=== PATIENT | male | born 1980 | race Caucasian/White ===

== ENCOUNTER 2024-10-11 16:45 | Emergency (ER) | payer MEDICAID, SELFPAY ==
--- NOTE | ~2024-10-11 | CT_ITS ---
CLINICAL HISTORY: RLQ pain and hematuria CT abdomen and pelvis without contrast Comparison: None provided Findings: Mild bibasilar atelectasis and scarring with question emphysematous changes of the partially imaged lung bases. No obstructing stone in the right kidney or right ureter. No obstructing stone in the left kidney or imaged left ureter. Left kidney is likely under rotated versus transplanted with relative lower positioning compared to the right. Small mesenteric lymph nodes are nonspecific and likely reactive. Adrenal glands are partly obscured and otherwise unremarkable. The spleen is nonenlarged. The gallbladder is surgically absent. Pancreas unremarkable for noncontrast study. Mild fat deposition suggested in the liver. Fluid and multiple small-bowel loops as can be seen with enteritis. No small bowel obstruction. Fluid in the large intestine can be seen with diarrhea type illnesses and mild colitis. Wall thickening of the descending colon and sigmoid colon suggested in this noncontrast study. Differential considerations include colitis. Multiple phleboliths are noted in the pelvis. Prostate gland measures 4.5 cm transverse. Mild-moderate wall thickening of the urinary bladder is nonspecific. Small fat containing left inguinal hernia. Multiple bone islands noted, including proximal left femur and right acetabulum. Degenerative changes include ligament calcifications and facet arthropathy of the imaged spine. IMPRESSION: 1. No obstructing stone of either kidney or either ureter. 2. Wall thickening of the urinary bladder is nonspecific. 3. Wall thickening of the large intestine is nonspecific in the may reflect colitis, including imaged sigmoid colon in this noncontrast study. This document has been electronically signed by: Jabier Chu MD on 10/11/2024 20:08:21
--- NOTE | 2024-10-11 17:07 | ED_ITS ---
HPI - General Adult General Chief complaint: Abdominal Pain Stated complaint: abd pain, blood in urine Time Seen by Provider: 10/11/24 18:27 Source: patient Mode of arrival: ambulatory Limitations: no limitations History of Present Illness ED Provider: DR. 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 , no nausea, no vomiting, no fever, s/p cholecystectomy, normal bowel movement, passing flatus, otherwise no dysuria, no frequency urination, no fever, no chills. Related Data Allergies Allergy/AdvReac Type Severity Reaction Status Date / Time seafood Allergy Hives Verified 10/11/24 17:10 Review of Systems 2 Review of Systems: All other systems are reviewed and are negative Constitutional: Reports as per HPI and Reports no additional constitutional complaints Eyes: Reports as per HPI and Reports no additional eye complaints Reports system reviewed and no additional complaints, except as documented Cardiovascular: Reports as per HPI and Reports no additional cardiovascular complaints Respiratory: Reports as per HPI and Reports no additional respiratory complaints Gastrointestinal: Reports as per HPI and Reports no additional gastrointestinal complaints Genitourinary: Reports no additional female genitourinary complaints Musculoskeletal: Reports no additional musculoskeletal complaints Skin/Breast: Reports system reviewed and no additional complaints, except as docu Psychiatric: Reports no additional psychiatric complaints Endocrine: Reports no additional endocrine complaints Hematologic/Lymphatic: Reports no additional hematologic/lymphatic complaints Allergic/Immunologic: Reports no additional allergic/immunologic complaints Reports system reviewed and no additional complaints, except as documented and Reports Abnormal speech present Physical Exam ED Vital Signs: Vital Signs - 24 hr 10/11/24 17:08 10/11/24 18:00 10/11/24 20:00 Temperature 98.4 F 98.1 F 98.1 F Pulse Rate 68 16 L 80 Respiratory Rate 18 16 16 Blood Pressure 124/75 126/77 111/76 Pulse Oximetry 98 100 96 Oxygen Delivery Method Room Air Room Air Room Air BMI result Body Mass Index 21.9 Vital signs have been reviewed and appear to be correct. Blood pressure elevated. Heart rate normal. Respiratory rate normal. Temperature normal. Oxygen saturation normal. Appearance: Alert. Oriented X3. No acute distress. Head: Normal external exam. Normocephalic. Atraumatic. No [place] signs noted. No raccoon eyes noted Eyes: PERRLA. EOMI. Conjunctiva and sclera normal. Eyelids normal. ENT: TM's Normal. Pharynx normal. Uvula midline. Moist mucous membranes. No trismus noted. No drooling noted. No muffled voice noted. Neck: Normal inspection. Neck supple. FROM. No adenopathy. Thyroid Normal. No meningeal signs. No neck mass noted. CVS: Normal heart rate and rhythm. Heart sound normal. No murmurs noted. Pulses normal throughout. Respiratory: No respiratory distress. Painless inspiration. Breath sounds normal. No wheezes/rales/rhonchi noted. Chest nontender. No accessory muscle usage noted or decreased air movement noted. Abdomen: Soft and nontender. Bowel sounds normal in all 4 quadrants. No distention noted. No organomegaly noted. No visible injury noted. Back: No CVA tenderness. Full range of motion noted. Skin: Skin warm and dry. Normal skin color. Normal skin turgor. No rashes/lesions/lacerations noted. Extremities: No lower extremity edema. Extremities exhibit normal range of motion. Extremities nontender. Neuro: Oriented X 3. Cranial nerve exam: II-XII are grossly intact No motor deficit. No sensory deficit. Reflexes normal. Course Course Course Narrative: This is a Rapid Medical Examination (RME) performed by Dionicio Cummings PA-C in triage. Full HPI, ROS, assessment and treatment plan per primary provider in the Main ED. Hx: 43 yo M here for eval of epigastric abd pain and dark colored urine x days. smokes tobacco. No N/V, dyruria, flank pain. Plan: labs, UA Reevaluation(s) Reevaluation #1: Slight leukocytosis of unclear etiology could be stress, otherwise unremarkable labs, UA is positive for moderate blood but no urine RBCs detected, CT abdomen pelvis is grossly negative for malignancy or kidney stones. Patient was instructed to find a PCP and start following with a to get his screenings annual exams patient was referred to [facility]. Time: 21:29 Medical Decision Making Differential Diagnosis Differential Diagnoses: The differential diagnosis associated with the presentation includes (Gross hematuria, UTI, kidney stone, colitis, diverticulitis, electrolyte derangement, severe anemia.) Admission/Observation Consideration of admission/observation: Escalation of care including admission/observation considered Lab Data MDM Lab Attestation statement: I reviewed the patient's lab results. 10/11/24 17:21 10/11/24 17:21 Labs: Lab Results 10/11/24 Range/Units 17:21 WBC 12.4 H (4.8-10.8) X10*3/uL RBC 5.21 (4.60-5.80) X10*6/uL Hgb 15.1 (14.0-18.0) g/dl Hct 44.6 (42.0-52.0) % MCV 85.6 (80.0-98.0) fL MCH 29.0 (27.0-33.0) pg MCHC 33.9 (31.0-36.0) g/dl RDW 12.7 (11.0-16.0) % Plt Count 272 (160-400) X10*3/uL MPV 9.7 (9.4-12.4) fL Immature Gran % (Auto) 0.2 (0.0-0.4) % Neut % (Auto) 65.6 (45-73) % Lymph % (Auto) 26.8 (20-40) % [place] % (Auto) 6.7 (2-11) % Eos % (Auto) 0.4 (0-4) % Baso % (Auto) 0.3 (0-2) % Lymph # (Auto) 3.3 (1.2-4.9) X10*3/uL [place] # (Auto) 0.8 (0.1-1.2) X10*3/uL Eos # (Auto) 0.1 (0.0-0.4) X10*3/uL Baso # (Auto) 0.0 (0.0-0.2) X10*3/uL Abs Immat Gran (auto) 0.03 (0.00-0.03) X10*3/uL Absolute Neuts (auto) 8.1 (2.0-8.3) x10*3/uL Absolute Nucleated RBC 0.000 (0.0-0.012) X10*3/uL Nucleated RBC % (auto) 0.0 (0.0-0.2) /100WBC Sodium 143 (135-145) mmol/L Potassium 3.6 (3.3-5.1) mmol/L Chloride 107 (96-108) mmol/L Carbon Dioxide 25 (22-29) mmol/L Anion Gap 15 (12-20) BUN 7 L (9-16) mg/dL Creatinine 1.09 (0.5-1.4) mg/dL Estim Creat Clear Calc 90.3 Estimated GFR > 60 Random Glucose 90 (60-115) mg/dL Calcium 9.5 (8.4-10.2) mg/dL Magnesium 1.9 (1.6-2.6) mg/dL Total Bilirubin 1.0 (0.0-1.0) mg/dL AST 19 (5-37) U/L ALT 14 (0-40) U/L Alkaline Phosphatase 101 (39-117) U/L Total Creatine Kinase 111 (38-174) U/L Total Protein 7.4 (6.5-8.0) g/dL Albumin 4.9 (3.5-5.0) g/dL Lipase 16 (8-78) U/L Urine Color Dark Yellow Urine Appearance Clear Urine pH 5.5 (5.0-9.0) Ur Specific [place] 1.025 (1.005-1.025) Urine Protein Trace (Neg-Trace) mg/dL Urine Glucose (UA) Negative (Negative) mg/dL Urine Ketones 80 (Negative) mg/dL Urine Blood Moderate (2+) H (Negative) Urine Nitrite Negative (Negative) Ur Leukocyte Esterase Negative (Negative) Urine RBC 0-2 (0-2) /HPF Urine WBC 0-5 (0-5) /HPF Ur Squamous Epith Cells 0-2 (0-2) /HPF Urine Bacteria None Seen (None Seen) Hyaline Casts 0-2 (0-2) /LPF Independent Interpretation I performed an independent interpretation of an: CT Scan (Abdomen pelvis:1. No obstructing stone of either kidney or either ureter. 2. Wall thickening of the urinary bladder is nonspecific. 3. Wall thickening of the large intestine is nonspecific in the may reflect colitis, including imaged sigmoid colon in this noncontrast study.) Radiology Impression Discussion of test interpretation with radiology: I have reviewed the radiologist's reading. Discharge Plan Discharge Clinical Impression: Hematuria, Abdominal pain Patient Disposition: Home, Self-Care Instructions: Abdominal Pain (ED) Additional Instructions: Drink plenty of fluids, if cancer runs in the family ED to find a primary doctor to have your routine follow-up and routine screenings. Referrals: [facility] [Physician, Medical] Print Language: Cambodian
[2024-10-11 17:08] VITALS: BP 124/75; PULSE 68; RESP 18; TEMP 36.9; O2SAT 98; BMI 21.9
--- NOTE | 2024-10-11 17:23 | MHC.EDTECH ---
Patient brought into triage area,labs and urine obtained and sent to lab.
[2024-10-11 17:28] LABS: MANUAL DIFF FLAG NO
[2024-10-11 17:34] LABS: Appearance Urine Clear; Glucose Urine UA Negative (Negative); PH 5.5 (5.0-9.0); Specific Gravity - Urine 1.025 (1.005-1.025); UMIC TRIGGER UACC YES
[2024-10-11 17:38] LABS: Hematocrit 44.6 % (42.0-52.0); Hemoglobin 15.1 g/dl (14.0-18.0); Imm Gran Abs Auto 0.03 X10*3/uL (0.00-0.03); Imm Gran Pct Auto 0.2 % (0.0-0.4); Lymphocytes Absolute Auto 3.3 X10*3/uL (1.2-4.9); Mean Corpuscular HGB Conc 33.9 g/dl (31.0-36.0); Mean Corpuscular Hemoglobin 29.0 pg (27.0-33.0); Mean Corpuscular Volume 85.6 fL (80.0-98.0); NRBC Abs Auto 0.000 X10*3/uL (0.0-0.012); NRBC Pct Auto 0.0 /100WBC (0.0-0.2); Platelet Count 272 X10*3/uL (160-400); Red Blood Count 5.21 X10*6/uL (4.60-5.80); White Blood Count 12.4 X10*3/uL (4.8-10.8)
[2024-10-11 17:49] LABS: Alanine Aminotransferase 14 U/L (0-40); Albumin Level 4.9 g/dL (3.5-5.0); Alkaline Phosphatase 101 U/L (39-117); Anion Gap 15 (12-20); Aspartate Amino Transferase 19 U/L (5-37); Blood Urea Nitrogen 7 mg/dL (9-16); Calcium 9.5 mg/dL (8.4-10.2); Carbon Dioxide 25 mmol/L (22-29); Chloride 107 mmol/L (96-108); Creatinine Clr Calc Pharmacy 90.3; Estimated Glomerular Filt Rate > 60; Lipase 16 U/L (8-78); Magnesium 1.9 mg/dL (1.6-2.6); Potassium 3.6 mmol/L (3.3-5.1); Sodium 143 mmol/L (135-145); Total Protein 7.4 g/dL (6.5-8.0)
[2024-10-11 18:00] VITALS: BP 126/77; PULSE 16; RESP 16; TEMP 36.7; O2SAT 100
[2024-10-11 20:00] VITALS: BP 111/76; PULSE 80; RESP 16; TEMP 36.7; O2SAT 96
[2024-10-11 21:30] VITALS: BP 111/76; PULSE 80; RESP 16; TEMP 36.7; O2SAT 96
== END 2024-10-11 21:32 | disposition home or self-care (01) ==
PROVIDERS: Physician Assistant Medical; Emergency Provider Emergency Medicine
DX: R31.9 Hematuria, unspecified (principal); R10.31 Right lower quadrant pain
CPT/HCPCS: 36415; 74176; 80053; 81001; 82550; 83690; 83735; 85025; 99283; 99284

== ENCOUNTER → 2024-10-11 18:36 | Outpatient (BNV) | payer SELFPAY | PROVIDERS: Emergency Provider Emergency Medicine; Visit Provider Radiology Neuroradiology | DX: R10.31 Right lower quadrant pain (principal); R31.9 Hematuria, unspecified; N32.89 Other specified disorders of bladder; K63.89 Other specified diseases of intestine | CPT/HCPCS: 74176 ==